=== PATIENT | male | born 1955 | race Caucasian/White ===

== ENCOUNTER → 2016-08-11 | Day surgery (SDC) | payer OTHER ==
[~2016-08-11] VITALS: Ht 177.8 cm; Wt 79.4 kg
[~2016-08-11] MED LIST: CRESTOR 10MG10 MG PO; GOOD SENSE ASP325 MG PO; LISINOPRIL2.5 MG PO; MERCAPTOPURINE50 MG PO; PERCOCET 325 MG1 TA2 PO; PLAVIX 75MG TAB75 MG PO; TOPROL XL 25MG25 MG PO
--- NOTE | 2016-08-11 14:13 | Operative Report ---
Operative/Inv Procedure Report Surgery Date: 08/11/16 Name of Procedure: Left axillary excisional lymph node biopsy Pre-Operative Diagnosis: Lymphadenopathy Post-Operative Diagnosis: Same Estimated Blood Loss: scant Surgeon/Primer Powder Blender Wet: ANDREA MALIK,RODDY Warner/Todd JARQUIN Anesthesia: local monitored anesthesi Specimens: Tissue for permanent section and flow cytometry Microbiology: Tissue for routine cultures/AFB/fungal Operative/Procedure Note Note: After consent is brought to the operating room laid supine. Sedation was obtained and this left axilla was prepped and draped. The infra-axillary crease was infiltrate with local anesthesia. A transverse incision made sharply. We dissected through the clavipectoral fascia with cautery. Self retraining retractor was placed. We were immediately met with a large lymph node which was circumvention dissected with cautery and clip ligation. It was then transected on the back table and noted to be fatty replaced. I elected to take another lymph node given the poor specimen of the first. We went down deeper behind the pectoralis and found a very large fleshy lymph node. It, too, was circumferentially dissected with cautery and clip ligation of feeding vessels. It was passed off the field then transected area portion was sent for culture and a portion was sent for pathology. The wound was irrigated with normal saline. Hemostasis achieved with cautery. Incision was then closed in layers of 3-0 and 4-0 Vicryl sutures. Steri-Strips and sterile dressing applied. Sponge and needle counts are correct. CC: CARISSA MALIK,DEON Villa; KAROL MALIK,JANE Casillas; SUN MALIK,ABRAHAM Mcmahon
== END ==
LOC: STS 04:03
DX: C83.34 Diffuse large B-cell lymphoma, lymph nodes of axilla and upper limb (principal); Z87.891 Personal history of nicotine dependence; K50.90 Crohn's disease, unspecified, without complications; I10 Essential (primary) hypertension; A15.9 Respiratory tuberculosis unspecified
CPT/HCPCS: 87070; 87075; 36415; 88184; 88305; J0131; J0690; J2250; J2405